=== PATIENT | male | born 1995 | race Caucasian/White ===

== ENCOUNTER 2018-11-08 05:49 | Emergency (ER) | payer OTHER ==
[~2018-11-08] VITALS: Ht 182.9 cm; Wt 92.4 kg
[2018-11-08 05:51] VITALS: BP 122/79
== END 2018-11-08 06:27 | disposition home or self-care (01) ==
LOC: ED 06:19
DX: B02.9 Zoster without complications (principal)
CPT/HCPCS: 99283